=== PATIENT | male | born 1960 | race Caucasian/White ===

== ENCOUNTER 2022-05-01 10:35 | Emergency (ER) | payer OTHER ==
[~2022-05-01] VITALS: Ht 188 cm; Wt 68.0 kg
[2022-05-01] MEDS ORDERED: ABILIFY MYCITE5 M2 PO (11:35)
[2022-05-01] MEDS ORDERED: SERTRALINE HCL150 M1 PO (11:35)
== END 2022-05-01 14:07 | disposition home or self-care (01) ==
LOC: ER 10:35
DX: G43.909 Migraine, unspecified, not intractable, without status migrainosus (principal); F32.A Depression, unspecified; F17.210 Nicotine dependence, cigarettes, uncomplicated
CPT/HCPCS: 36415; 96374; 96375; 99283-25; J1200; J1885; J2550; J2765; J7030